=== PATIENT | male | born 1970 | race Caucasian/White ===

== ENCOUNTER 2017-01-01 07:04 | Outpatient (CLI) | END 2017-01-01 07:05 | LOC: AMBL 07:04 | PROVIDERS: ATTEND Emergency Medicine | DX: R50.9 Fever, unspecified (principal); R10.819 Abdominal tenderness, unspecified site; T83.091A Other mechanical complication of indwelling urethral catheter, initial encounter; R00.0 Tachycardia, unspecified; R52 Pain, unspecified; R73.9 Hyperglycemia, unspecified; Z74.01 Bed confinement status ==

== ENCOUNTER 2017-01-17 12:19 | Outpatient (CLI) ==
[2017-01-17 12:27] LABS: BILIRUBIN,URINE Negative (NEGATIVE); KETONES,URINE Negative (NEGATIVE); LEUKOCYTE ESTERASE ,URINE 2+ (NEGATIVE); NITRITE,URINE Positive (NEGATIVE); PH,URINE 6.5 (5-9); PROTEIN,URINE 2+ (NEGATIVE); URINE, BLOOD 1+ (NEGATIVE)
[2017-01-17 12:45] LABS: ADD URINE MICROSCOPIC YES
[2017-01-17 12:46] LABS: BACTERIA,URINE 2+ (NOT PRESENT)
== END 2017-01-17 12:20 | disposition home or self-care (01) ==
LOC: LAB 12:19
PROVIDERS: ATTEND Family Medicine
DX: N39.0 Urinary tract infection, site not specified (principal)
CPT/HCPCS: 81001; 87086; 87186

== ENCOUNTER 2017-02-22 08:25 | Outpatient (CLI) | END 2017-02-22 08:26 | LOC: AMBL 08:25 | PROVIDERS: ATTEND Emergency Medicine | DX: R50.9 Fever, unspecified (principal); R10.30 Lower abdominal pain, unspecified; R33.9 Retention of urine, unspecified; G35 Multiple sclerosis; Z96.0 Presence of urogenital implants ==

== ENCOUNTER 2017-02-23 08:42 | Outpatient (CLI) | END 2017-02-23 08:43 | LOC: AMBL 08:42 | PROVIDERS: ATTEND Internal Medicine | DX: R50.9 Fever, unspecified (principal); R53.1 Weakness; A41.9 Sepsis, unspecified organism; R52 Pain, unspecified; G35 Multiple sclerosis; Z74.01 Bed confinement status ==

== ENCOUNTER 2017-06-05 13:28 | Outpatient (CLI) | END 2017-06-05 13:29 | disposition home or self-care (01) | LOC: LAB 13:28 | PROVIDERS: ATTEND Family Medicine | DX: H92.12 Otorrhea, left ear (principal) | CPT/HCPCS: 87070 ==

== ENCOUNTER 2017-08-01 09:17 | Day surgery (SDC) ==
[2017-08-01] MEDS ORDERED: VERSED ONE (11:45)
[2017-08-01] MEDS ORDERED: DIPRIVAN 20 ML VIAL IVP ONE (11:45)
[2017-08-01 14:42] VITALS: BP 119/81; TEMP 98
--- NOTE | 2017-08-02 08:58 | OP ---
INDICATIONS FOR PROCEDURE: 46-year-old gentleman presents for colonoscopy. He tells me he has a history of polyps found in [place] many years ago, unknown histology. He has a family history of colon polyps involving his mother in her 60s, a maternal uncle had colon cancer at an unknown age. He does suffer from chronic constipation. He took a Golytely prep. He states he was having liquid stools after the prep for the procedure today. MEDICATIONS: SEE ANESTHESIA NOTES. PROCEDURE: ABORTED COLONOSCOPY AFTER ADVANCEMENT OF SCOPE INTO THE RECTUM. REPORT: The risks, benefits, alternatives and limitations were discussed in extensive detail with the patient. Informed consent was obtained. After adequate sedation was achieved, a digital rectal exam revealed good tone, no masses. Unfortunately I did see stool in the exam. The colonoscope was introduced into the rectum. Unfortunately the rectum was full of liquid and semi solid stool. This was noted throughout. I attempted to advance the scope beyond the rectum and in the sigmoid I encountered too much solid stool to advance the scope. Visualization was inadequate thus the procedure was aborted given the inadequate prep. The patient tolerated the limited procedure well with stable vital signs and pulse oximetry throughout. IMPRESSION: 1. ABORTED COLONOSCOPY SECONDARY TO INADEQUATE PREP. RECOMMENDATIONS: 1. He will need reattempt at colonoscopy after additional prep. If he is willing, we will schedule him for colonoscopy tomorrow after he takes an additional split dose Golytely prep tonight and in the morning. Otherwise, he will need to reschedule at a later date if he is willing. I would recommend a two-day prep with the Golytely prep day one and repeat a second 4 liter Golytely prep day two. CC: Dr. Vargas [facility]
== END 2017-08-01 12:50 | disposition home or self-care (01) ==
LOC: SURG 09:17
PROVIDERS: ATTEND Internal Medicine Gastroenterology
DX: Z53.8 Procedure and treatment not carried out for other reasons (principal); Z86.010 Personal history of colon polyps; Z80.0 Family history of malignant neoplasm of digestive organs; Z83.71 Family history of colonic polyps; K59.09 Other constipation
CPT/HCPCS: 82962

== ENCOUNTER 2017-12-26 12:16 | Outpatient (CLI) | END 2017-12-26 12:17 | disposition home or self-care (01) | LOC: NONPT 12:16 | PROVIDERS: ATTEND Family Medicine | DX: R30.0 Dysuria (principal); R31.9 Hematuria, unspecified | CPT/HCPCS: 81001; 87086 ==

== ENCOUNTER 2018-02-11 07:51 | Outpatient (CLI) | END 2018-02-11 07:52 | LOC: AMBL 07:51 | PROVIDERS: ATTEND Family Medicine | DX: R50.9 Fever, unspecified (principal); I10 Essential (primary) hypertension; G35 Multiple sclerosis; E11.9 Type 2 diabetes mellitus without complications ==

== ENCOUNTER 2018-03-02 14:57 | Outpatient (CLI) | payer OTHER | END 2018-03-02 14:58 | disposition home or self-care (01) | LOC: NONPT 14:57 | PROVIDERS: ATTEND Family Medicine | DX: N39.0 Urinary tract infection, site not specified (principal) | CPT/HCPCS: 87070 ==

== ENCOUNTER 2018-03-04 07:27 | Outpatient (CLI) | payer OTHER | END 2018-03-04 07:28 | disposition home or self-care (01) | LOC: LAB 07:27 | PROVIDERS: ATTEND Family Medicine | DX: N39.0 Urinary tract infection, site not specified (principal); B95.62 Methicillin resistant Staphylococcus aureus infection as the cause of diseases classified elsewhere; D72.829 Elevated white blood cell count, unspecified | CPT/HCPCS: 36415; 80053; 80202; 85025 ==

== ENCOUNTER 2018-03-20 10:01 | Outpatient (CLI) | END 2018-03-20 10:02 | disposition home or self-care (01) | LOC: NONPT 10:01 | PROVIDERS: ATTEND Family Medicine | DX: R31.9 Hematuria, unspecified (principal); R82.90 Unspecified abnormal findings in urine; R50.9 Fever, unspecified | CPT/HCPCS: 81001; 87086 ==

== ENCOUNTER 2018-03-21 11:19 | Outpatient (CLI) | payer OTHER | END 2018-03-21 11:20 | disposition short-term general hospital (02) | LOC: AMBL 11:19 | PROVIDERS: ATTEND Internal Medicine | DX: R50.9 Fever, unspecified (principal) ==

== ENCOUNTER 2018-03-23 15:08 | Outpatient (CLI) | END 2018-03-23 15:09 | disposition home or self-care (01) | LOC: NONPT 15:08 | PROVIDERS: ATTEND Family Medicine | DX: N39.0 Urinary tract infection, site not specified (principal); Z93.3 Colostomy status; Z87.442 Personal history of urinary calculi | CPT/HCPCS: 87086; 87186 ==

== ENCOUNTER 2018-07-10 07:47 | Outpatient (CLI) | END 2018-07-10 07:48 | disposition home or self-care (01) | LOC: NONPT 07:47 | PROVIDERS: ATTEND Emergency Medicine | DX: Z01.812 Encounter for preprocedural laboratory examination (principal) | CPT/HCPCS: 81001; 87086 ==

== ENCOUNTER 2018-07-16 12:06 | Outpatient (CLI) | payer OTHER | END 2018-07-16 12:07 | disposition home or self-care (01) | LOC: NONPT 12:06 | PROVIDERS: ATTEND Family Medicine | DX: R50.9 Fever, unspecified (principal) | CPT/HCPCS: 80053; 85025 ==

== ENCOUNTER 2018-08-02 07:00 | Outpatient (CLI) ==
[2018-08-02] MEDS ORDERED: DOBUTAMINE 250 ML IV ONE (07:23)
[2018-08-02] MEDS ORDERED: ATROPINE SULFATE PFS ONE (07:24)
--- NOTE | 2018-08-02 13:05 | DOBSTECHO ---
Date of Test: 08/02/18 Ordering Physician: DR. ELIZABETH AMBRIZ Occupation: DISABLED Smoking History: QUIT 4 YR AGO Reason for Examination: SOB, CHEST PAIN, SURGICAL CLEARANCE Current Medications: COPAXONE, DITROPAN DULOXETINE, DUONEB, FAMOTIDINE, FENOFIBRATE, HUMALOG, NORCO, LANTUS, METFORMIN, METOPROLOL, PRAVASTATIN Height: 70" Weight: 230 LBS Target Heart Rate: 147/173 S-T Segment Stage Time HR BPM BP MMHG Rhythm +/- Elevation Depression Comments/ Symptoms Control Sitting 76 118/72 SR X NONE Dobutamine 250mg/D5W 5cmg/KG/mn 10cmg/KG/mn 3:00 98 122/70 SR X NONE 15cmg/KG/mn 2:00 99 SR X NONE 20cmg/KG/mn 2:00 120 132/80 SR X NONE 25cmg/KG/mn 2:00 127 138/74 SR X NONE 30cmg/KG/mn 1:00 136 128/70 SR X NONE 35cmg/KG/mn 40cmg/KG/mn 5:00 MIN POST INFUSION z 88 122/70 11:00 MIN POST INFUSION z 82 DURATION OF INFUSION 10:00 MAXIMUM HEART RATE REACHED 136 BPM Interpretation: 1. NO EVIDENCE OF ISCHEMIA BY ST-T WAVE FROM RESTING HEART RATE 76 BPM TO 136 BPM WITH DOBUTAMINE INFUSION 2. NO CHEST PAIN OR DISCOMFORT 3. NORMAL LEFT VENTRICULAR CONTRACTILITY--RESTING AND WITH DOBUTAMINE INFUSION MTDD
--- NOTE | 2018-08-02 13:08 | ECHOSTRESS ---
Date of Exam: 08/02/18 Ordering Physician: DR. ELIZABETH AMBRIZ Reason for Echo: SOB, CHEST PAIN, SURGICAL CLEARANCE, DOBUTAMINE STRESS TEST -- NO ISCHEMIA M-Mode Normal Adult Results LV Dimensions Normal Adult Results AoV Opening excursions >1.6 LVEDD-base- 3.5-5.8 Ao root dimensions 2.0-3.7 LVESD-base- 3.1-4.6 L. Atrium dimensions 1.9-3.8 Post. Wall thickness 0.8-1.1 IV septum (thickness) 0.7-1.2 Post. Wall excursion 0.72-1.3 Septal motion Systolic motion R. Ventricular cavity 1.5-2.0 LVEF 60% Paradoxical septal wall motion 2-D: NORMAL LEFT VENTRICULAR CONTRACTILITY--RESTING AND WITH DOBUTAMINE INFUSION M-MODE: MV: AV: TV: PV: CHAMBER SIZE: WALL MOTION: NORMAL LEFT VENTRICULAR CONTRACTILITY--RESTING AND WITH DOBUTAMINE INFUSION PERICARDIUM: INTERPRETATION: 1. NORMAL LEFT VENTRICULAR CONTRACTILITY--RESTING AND WITH DOBUTAMINE INFUSION MTDD
== END 2018-08-02 07:01 | disposition home or self-care (01) ==
LOC: CAR 07:00
PROVIDERS: ATTEND Family Medicine
DX: R06.02 Shortness of breath (principal); R07.9 Chest pain, unspecified; E11.9 Type 2 diabetes mellitus without complications; I10 Essential (primary) hypertension; E78.5 Hyperlipidemia, unspecified; K21.9 Gastro-esophageal reflux disease without esophagitis; Z79.4 Long term (current) use of insulin

== ENCOUNTER 2018-08-10 13:54 | Outpatient (CLI) | END 2018-08-10 13:55 | disposition home or self-care (01) | LOC: NONPT 13:54 | PROVIDERS: ATTEND Family Medicine | DX: S31.829A Unspecified open wound of left buttock, initial encounter (principal) | CPT/HCPCS: 87070; 87186 ==

== ENCOUNTER 2018-09-13 07:39 | Outpatient (CLI) | payer OTHER | END 2018-09-13 07:40 | disposition home or self-care (01) | LOC: NONPT 07:39 | PROVIDERS: ATTEND Family Medicine | DX: Z01.812 Encounter for preprocedural laboratory examination (principal); Z79.899 Other long term (current) drug therapy | CPT/HCPCS: 81001; 87086; 87186 ==

== ENCOUNTER 2019-03-27 15:37 | Outpatient (CLI) | END 2019-03-27 15:57 | disposition short-term general hospital (02) | LOC: AMBL 15:37 | PROVIDERS: ATTEND Internal Medicine | DX: R50.9 Fever, unspecified (principal); R82.90 Unspecified abnormal findings in urine; E11.9 Type 2 diabetes mellitus without complications; G35 Multiple sclerosis; R41.82 Altered mental status, unspecified; R53.83 Other fatigue; R00.0 Tachycardia, unspecified ==

== ENCOUNTER 2019-07-10 09:08 | Outpatient (CLI) | END 2019-07-10 09:09 | disposition home or self-care (01) | LOC: NONPT 09:08 | PROVIDERS: ATTEND Family Medicine | DX: Z01.812 Encounter for preprocedural laboratory examination (principal); R82.90 Unspecified abnormal findings in urine | CPT/HCPCS: 81001; 87086 ==